=== PATIENT | male | born 1960 | race Caucasian/White ===

== ENCOUNTER 2016-11-05 12:15 | Inpatient (IN) | payer OTHER ==
[2016-11-05 12:50] VITALS: BMI 23.5
--- NOTE | 2016-11-05 13:24 | HP ---
CIWA Score - CIWA Score Nausea/Vomitin Muscle Tremors: 3 Anxiety: 3 Agitation: 3 Paroxysmal Sweats: 2 Orientation: 0-Oriented Tacttile Disturbances: 2-Mild Itch/Numbness/Burn Auditory Disturbances: 2-Mild Harshness/Frighten Visual Disturbances: 2-Mild Sensitivity Headache: 2-Mild CIWA-Ar Total Score: 22 Admission ROS BHS - HPI Chief Complaint: i need help help to stop drinking alcohol and cocaine Allergies/Adverse Reactions: Allergies Allergy/AdvReac Type Severity Reaction Status Date / Time lactose Allergy Verified 11/05/16 13:15 Penicillins Allergy Verified 11/05/16 13:15 apple AdvReac Hives Verified 11/05/16 13:15 orange AdvReac Hives Verified 11/05/16 13:15 pepper AdvReac Hives Verified 11/05/16 13:15 ALL FRUITS Allergy Intermediate Hives Uncoded 11/05/16 13:15 History of Present Illness: this 56 years old male with alcohol and cocaine dependence,withdrawal symptom, last detox [facility] 05/27/16 to 05/31/16 [facility] hiv since 1995 no medicatios for 3 months nicotine dependence weight loss htn anxiety and depression Exam Limitations: No Limitations - Ebola screening Have you traveled outside of the country in the last 21 days: No Have you had contact with anyone from an Ebola affected area: No Have you been sick,other than usual withdrawal symptoms: No Do you have a fever: No - Review of Systems Constitutional: Chills, Diaphoresis, Loss of Appetite, Malaise, Night Sweats, Changes in sleep, Weakness, Unintentional Wgt. Loss EENT: reports: Nose Congestion Respiratory: reports: No Symptoms reported Cardiac: reports: Palpitations GI: reports: Nausea, Vomiting, Indigestion, Abdominal cramping : reports: No Symptoms Reported Musculoskeletal: reports: Back Pain, Muscle Pain Integumentary: reports: Dryness Neuro: reports: Headache, Tremors Endocrine: reports: No Symptoms Reported Hematology: reports: Other (hiv) Psychiatric: reports: Anxious, Depressed Patient History - Patient Medical History Hx Anemia: No Hx Asthma: Yes Hx Chronic Obstructive Pulmonary Disease (COPD): Yes Hx Cancer: No Hx Cardiac Disorders: No Hx Congestive Heart Failure: No Hx Hypertension: Yes (no med) Hx Hypercholesterolemia: No Hx Pacemaker: No HX Cerebrovascular Accident: No Hx Seizures: No Hx Dementia: No Hx Diabetes: No Hx Gastrointestinal Disorders: Yes (gerd) Hx Liver Disease: No Hx Genitourinary Disorders: No Hx Sexually Transmitted Disorders: No Hx Renal Disease (ESRD): No Hx Thyroid Disease: No Hx Human Immunodeficiency Virus (HIV): Yes (1995) Hx Hepatitis C: No Hx Depression: Yes (anxiety) Hx Suicide Attempt: No Hx Bipolar Disorder: Yes Hx Schizophrenia: No Other Medical History: no suicidal,no homicidal - Patient Surgical History Past Surgical History: Yes Hx Neurologic Surgery: No Hx Cataract Extraction: No (cataract both eye, ) Hx Cardiac Surgery: No Hx Lung Surgery: No Hx Breast Surgery: No Hx Breast Biopsy: No Hx Abdominal Surgery: Yes (abscess 2012) Hx Appendectomy: No Hx Cholecystectomy: No Hx Genitourinary Surgery: No Hx Orthopedic Surgery: Yes (jaw fx 30 years ago) Anesthesia Reaction: No - PPD History Previous Implant?: Yes Documented Results: Negative w/proof Date: 05/29/16 PPD to be Administered?: No - Smoking Cessation Smoking history: Current every day smoker Have you smoked in the past 12 months: Yes Aproximately how many cigarettes per day: 2 Hx Chewing Tobacco Use: No Initiated information on smoking cessation: Yes 'Breaking Loose' booklet given: 11/05/16 - Substance & Tx. History Hx Alcohol Use: Yes Hx Substance Use: Yes Substance Use Type: Alcohol, Cocaine Hx Substance Use Treatment: Yes ([facility] 05/27/16 to 05/31/16) - Substances Abused Alcohol Route: Oral Frequency: Daily Amount used: 3 6PKS BEER Age of first use: 21 Date of Last Use: 11/05/16 Cocaine Route: Inhalation Frequency: 1-3 times last 30 days Amount used: 1 HIT Age of first use: 56 Date of Last Use: 11/04/16 Family Disease History - Family Disease History Family Disease History: Diabetes: Mother (hypertension), Heart Disease: Mother, CA: Father (lung/alcohol), Other: Father Admission Physical Exam BHS - Vital Signs Vital Signs: Vital Signs - 24 hr 11/05/16 12:43 Temperature 95.6 F L Pulse Rate 77 Respiratory 18 Rate Blood Pressure 146/105 - Physical General Appearance: Yes: Moderate Distress, Tremorous, Irritable, Sweating HEENTM: Yes: Nasal Congestion, Other (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) Respiratory: Yes: Lungs Clear Neck: Yes: Within Normal Limits Breast: Yes: Within Normal Limits Cardiology: Yes: Within Normal Limits, Regular Rhythm, Regular Rate, S1, S2 Abdominal: Yes: Within Normal Limits, Normal Bowel Sounds, Non Tender, Flat, Soft Genitourinary: Yes: Within Normal Limits Back: Yes: Muscle Spasm Musculoskeletal: Yes: Back pain Extremities: Yes: Tremors Neurological: Yes: chef manager II-XII NML intact, Fully Oriented, Alert, Motor Strength 5/5 Integumentary: Yes: Dry Lymphatic: Yes: Within Normal Limits - Diagnostic (1) Alcohol dependence with withdrawal Current Visit: No Status: Acute Qualifiers: Complication of substance-induced condition: uncomplicated Qualified Code(s): F10.230 - Alcohol dependence with withdrawal, uncomplicated (2) Nicotine dependence Current Visit: No Status: Acute Qualifiers: Nicotine product type: cigarettes Substance use status: uncomplicated Qualified Code(s): F17.210 - Nicotine dependence, cigarettes, uncomplicated (3) Asthma Current Visit: No Status: Chronic Qualifiers: Asthma severity: mild persistent Asthma complication type: with status asthmaticus Qualified Code(s): J45.32 - Mild persistent asthma with status asthmaticus (4) COPD (chronic obstructive pulmonary disease) Current Visit: No Status: Chronic Qualifiers: COPD type: emphysema Emphysema type: panlobular Qualified Code(s ): J43.1 - Panlobular emphysema (5) GERD (gastroesophageal reflux disease) Current Visit: No Status: Chronic Qualifiers: Esophagitis presence: without esophagitis Qualified Code(s): K21.9 - Gastro-esophageal reflux disease without esophagitis (6) HIV (human immunodeficiency virus infection) Current Visit: No Status: Chronic (7) Bipolar affect, depressed Current Visit: No Status: Suspected Qualifiers: Current episode severity: mild Qualified Code(s): F31.31 - Bipolar disorder, current episode depressed, mild (8) Blind left eye Current Visit: Yes Status: Acute (9) Deafness in left ear Current Visit: Yes Status: Acute (10) Vision loss night Current Visit: Yes Status: Acute (11) Vision loss of right eye Current Visit: Yes Status: Acute Cleared for Admission S - Detox or Rehab S Level of Care: Medically Managed Detox Regimen/Protocol: Librium S Breath Alcohol Content Breath Alcohol Content: 0.204 Urine Drug Screen - Results Drug Screen Negative: No Urine Drug Screen Results: HARISH-Cocaine
[2016-11-05] MEDS ORDERED: chlordiazePOXIDE HCL 25 MG CAPSULE PO PRN (13:50)
[2016-11-05] MEDS ORDERED: IBUPROFEN 400 MG TABLET (FP) PO PRN (13:50)
[2016-11-05] MEDS ORDERED: MAGNESIUM HYDROX 2400MG/30ML ORAL SUSPENSION 30 ML CUP PO PRN (13:50)
[2016-11-05] MEDS ORDERED: hydrOXYzine PAMOATE 50 MG CAPSULE (FP) PO PRN (13:50)
[2016-11-05] MEDS ORDERED: guaiFENesin/D-METHORPHAN HB 10 ML UNIT-DOSE CUPS PO PRN (13:50)
[2016-11-05] MEDS ORDERED: ACETAMINOPHEN 325 MG TABLET (FP) PO PRN (13:50)
[2016-11-05] MEDS ORDERED: MAGNESIUM CITRATE 300 ML BOTTLE PO PRN (13:50)
[2016-11-05] MEDS ORDERED: MAG HYDROX/AL HYDROX/SIMETH 30 ML UNIT-DOSE CUP PO PRN (13:50)
[2016-11-05] MEDS ORDERED: LOPERAMIDE HCL 2 MG CAPSULE PO PRN (13:50)
[2016-11-05] MEDS ORDERED: P-EPHED 60MG/TRIPROLIDI 2.5MG TABLET PO PRN (13:50)
[2016-11-05] MEDS ORDERED: MENTHOL/PHENOL 1 EACH UD MM PRN (13:50)
[2016-11-05] MEDS ORDERED: ALBUTEROL SO4 6.7 GM HFA INHALER IH PRN (13:54)
[2016-11-05] MEDS ORDERED: chlordiazePOXIDE HCL 25 MG CAPSULE PO ONE (14:00)
--- NOTE | 2016-11-05 17:26 | CONSULT ---
[facility] Psychiatric Consult - Data Date of interview: 11/05/16 Admission source: [facility] Identifying data: [facility] for this 56 y/o [place] male seeking detox treatment on for alcohol and cocaine dependence.Patient is single,a father of three,domiciled,unemployed and supported on SSI benefits. Substance Abuse History: - Smoking Cessation. Smoking history: Current every day smoker. Have you smoked in the past 12 months: Yes. Aproximately how many cigarettes per day: 2. Hx Chewing Tobacco Use: No. Initiated information on smoking cessation: Yes. 'Breaking Loose' booklet given: 11/05/16. - Substance & Tx. History. Hx Alcohol Use: Yes. Hx Substance Use: Yes. Substance Use Type : Alcohol, Cocaine. Hx Substance Use Treatment: Yes ([facility] 05/27/[facility] to 05/31/16) . - Substances Abused. Alcohol. Route: Oral. Frequency: Daily. Amount used: 3 6PKS BEER. Age of first use: 21. Date of Last Use: 11/05/16. Cocaine. Route: Inhalation. Frequency: 1-3 times last 30 days. Amount used: 1 HIT. Age of first use: 56. Date of Last Use: 11/04/16 Medical History: Significant for bronchial asthma,HIV infection (on ART meds) since 1995,cataracts (both eyes),GERD,hypertension and deafness (left ear). Psychiatric History: No change in personal history since previous encounter in May 2016.History as follows: previously treated at the [facility] many years ago.Diagnosed with Bipolar Disorder.Mr Ocampo indicates that he stopped seeing his psychiatrist at [facility] (three years ago) in [place], [place] and decided to stay off psychotropic medications.No reported history of suicide attempts.No interest in resuming OPD care.Patient maintains his decision to abstain for medications other than drugs necessary for detoxification purposes. Physical/Sexual Abuse/Trauma History: Patient denies. Additional Comment: Urine Drug Screen Results: HARISH-Cocaine.Noted. Mental Status Exam - Mental Status Exam Alert and Oriented to: Time, Place, Person Cognitive Function: Good Patient Appearance: Well Groomed Mood: Withdrawn, Anxious, Hopeful Affect: Mood Congruent Patient Behavior: Fatigued, Appropriate, Cooperative Speech Pattern: Clear, Appropriate Voice Loudness: Normal Thought Process: Goal Oriented Thought Disorder: Not Present Hallucinations: Denies Suicidal Ideation: Denies Homicidal Ideation: Denies Insight/Judgement: Poor Sleep: Fair Appetite: Good Muscle strength/Tone: Normal Gait/Station: Normal Psychiatric Findings - Problem List ([place] 1, 2,3) (1) Alcohol dependence with withdrawal Current Visit: Yes Status: Acute Qualifiers: Complication of substance-induced condition: uncomplicated Qualified Code(s): F10.230 - Alcohol dependence with withdrawal, uncomplicated (2) Nicotine dependence Current Visit: Yes Status: Acute Qualifiers: Nicotine product type: cigarettes Substance use status: uncomplicated Qualified Code(s): F17.210 - Nicotine dependence, cigarettes, uncomplicated (3) Cocaine abuse Current Visit: Yes Status: Acute (4) Substance induced mood disorder Current Visit: Yes Status: Suspected (5) Deafness in left ear Current Visit: Yes Status: Chronic (6) Vision loss of right eye Current Visit: Yes Status: Chronic (7) Asthma Current Visit: Yes Status: Chronic Qualifiers: Asthma severity: mild persistent Asthma complication type: with status asthmaticus Qualified Code(s): J45.32 - Mild persistent asthma with status asthmaticus (8) COPD (chronic obstructive pulmonary disease) Current Visit: Yes Status: Chronic Qualifiers: COPD type: emphysema Emphysema type: panlobular Qualified Code(s ): J43.1 - Panlobular emphysema (9) GERD (gastroesophageal reflux disease) Current Visit: Yes Status: Chronic Qualifiers: Esophagitis presence: without esophagitis Qualified Code(s): K21.9 - Gastro-esophageal reflux disease without esophagitis (10) HIV (human immunodeficiency virus infection) Current Visit: Yes Status: Chronic (11) Dermatitis Current Visit: No Status: Suspected - Initial Treatment Plan Initial Treatment Plan: Psychoeducation.Detoxification.Observation.
[2016-11-05] MEDS: chlordiazePOXIDE HCL 25 MG CAPSULE PO SCH ×2 (17:48→22:09)
[2016-11-05] MEDS: BUDESONIDE/FORMETEROL FUMARATE 80/4.5 mcg INHALER IH SCH (22:08)
[2016-11-05] MEDS: diphenhydrAMINE HCL 50 MG CAPSULE PO PRN (22:09)
[2016-11-05] MEDS: THIAMINE HCL 100 MG TABLET (FP) PO SCH (22:09)
[2016-11-06] MEDS: chlordiazePOXIDE HCL 25 MG CAPSULE PO SCH ×4 (05:13→22:23)
[2016-11-06 10:31] LABS: MCH 32.9 pg (25.7-33.7); MCHC 33.3 g/dl (32.0-35.9); MEAN CELL VOLUME 98.8 fl (80-96); MEAN PLT VOLUME 8.6 fl (7.5-11.1); PLATELET COUNT 230 K/MM3 (134-434); RDW 13.7 % (11.9-15.9); WHITE BLOOD COUNT 6.9 K/mm3 (4.0-10.0)
[2016-11-06] MEDS: HYDROCHLOROTHIAZIDE 25 MG TABLET (FP) PO SCH (10:42)
[2016-11-06] MEDS: BUDESONIDE/FORMETEROL FUMARATE 80/4.5 mcg INHALER IH SCH ×2 (10:43→22:24)
[2016-11-06] MEDS: PRENATAL VITAMINS W/ FOLIC ACID TABLET (FP) PO SCH (10:43)
[2016-11-06 10:52] LABS: URINE APPEARANCE CLEAR; URINE BILIRUBIN NEGATIVE (NEGATIVE); URINE BLOOD NEGATIVE (NEGATIVE); URINE COLOR YELLOW; URINE GLUCOSE (UA) NEGATIVE (NEGATIVE); URINE KETONE NEGATIVE (NEGATIVE); URINE LEUK ESTERASE NEGATIVE (NEGATIVE); URINE NITRITE NEGATIVE (NEGATIVE); URINE PROTEIN NEGATIVE (NEGATIVE); URINE UROBILINOGEN NEGATIVE E.U./dl (0.2-1.0)
[2016-11-06 11:10] LABS: ALBUMIN 4.5 g/dl (3.4-5.0); ALK PHOS 96 U/L (45-117); ANION GAP 10 (8-16); BILIRUBIN,TOTAL 0.5 mg/dL (0.2-1.0); CALCIUM 8.9 mg/dL (8.5-10.1); CO2 25 mmol/L (21-32); CREATININE 0.8 mg/dL (0.7-1.3); GLUCOSE,RANDOM 76 mg/dL (74-106); SGOT/AST 51 U/L (15-37); SGPT/ALT 87 U/L (12-78); TOT PROT 8.2 g/dl (6.4-8.2)
--- NOTE | 2016-11-06 12:56 | PN ---
S CIWA - CIWA Score Nausea/Vomitin Muscle Tremors: 3 Anxiety: 3 Agitation: 2 Paroxysmal Sweats: 1-Minimal Palms Moist Orientation: 0-Oriented Tacttile Disturbances: 1-Very Mild Itch/Numbness Auditory Disturbances: 1-Very Mild Visual Disturbances: 1-Very Mild Sensitivity Headache: 2-Mild CIWA-Ar Total Score: 17 BHS Progress Note (SOAP) Subjective: alert,irritable,anxious,tremor,interrupted sleep,pain in the body Objective: 11/06/16 12:54 Vital Signs Temperature 98.1 F 11/06/16 10:00 Pulse Rate 74 11/06/16 10:00 Respiratory Rate 18 11/06/16 10:00 Blood Pressure 141/92 11/06/16 10:00 O2 Sat by Pulse Oximetry (%) ekg nsr Laboratory Last Values WBC 6.9 K/mm3 (4.0-10.0) D 11/06/16 07:50 RBC 4.33 M/mm3 (4.00-5.60) 11/06/16 07:50 Hgb 14.2 GM/dL (11.7-16.9) 11/06/16 07:50 Hct 42.8 % (35.4-49) 11/06/16 07:50 MCV 98.8 fl (80-96) H 11/06/16 07:50 MCHC 33.3 g/dl (32.0-35.9) 11/06/16 07:50 RDW 13.7 % (11.9-15.9) 11/06/16 07:50 Plt Count 230 K/MM3 (134-434) 11/06/16 07:50 MPV 8.6 fl (7.5-11.1) 11/06/16 07:50 Sodium 139 mmol/L (136-145) 11/06/16 07:50 Potassium 4.0 mmol/L (3.5-5.1) 11/06/16 07:50 Chloride 104 mmol/L (98-107) 11/06/16 07:50 Carbon Dioxide 25 mmol/L (21-32) 11/06/16 07:50 Anion Gap 10 (8-16) 11/06/16 07:50 BUN 10 mg/dL (7-18) D 11/06/16 07:50 Creatinine 0.8 mg/dL (0.7-1.3) 11/06/16 07:50 Creat Clearance w eGFR > 60 (>60) 11/06/16 07:50 Random Glucose 76 mg/dL (74-106) 11/06/16 07:50 Calcium 8.9 mg/dL (8.5-10.1) 11/06/16 07:50 Total Bilirubin 0.5 mg/dL (0.2-1.0) D 11/06/16 07:50 AST 51 U/L (15-37) H D 11/06/16 07:50 ALT 87 U/L (12-78) H 11/06/16 07:50 Alkaline Phosphatase 96 U/L (45-117) 11/06/16 07:50 Total Protein 8.2 g/dl (6.4-8.2) D 11/06/16 07:50 Albumin 4.5 g/dl (3.4-5.0) D 11/06/16 07:50 Urine Color Yellow 11/06/16 09:14 Urine Appearance Clear 11/06/16 09:14 Urine pH 5.0 (5.0-8.0) 11/06/16 09:14 Ur Specific [place] 1.018 (1.001-1.035) 11/06/16 09:14 Urine Protein Negative (NEGATIVE) 11/06/16 09:14 Urine Glucose (UA) Negative (NEGATIVE) 11/06/16 09:14 Urine Ketones Negative (NEGATIVE) 11/06/16 09:14 Urine Blood Negative (NEGATIVE) 11/06/16 09:14 Urine Nitrite Negative (NEGATIVE) 11/06/16 09:14 Urine Bilirubin Negative (NEGATIVE) 11/06/16 09:14 Urine Urobilinogen Negative E.U./dl (0.2-1.0) 11/06/16 09:14 Ur Leukocyte Esterase Negative (NEGATIVE) 11/06/16 09:14 RPR Titer Nonreactive (NONREACTIVE) 11/06/16 07:50 Assessment: 11/06/16 12:55 withdrawal symptom.d/c tylenol,elevation of ast,alt Plan: continue detox
[2016-11-06] MEDS: diphenhydrAMINE HCL 50 MG CAPSULE PO PRN (22:05)
[2016-11-06] MEDS: THIAMINE HCL 100 MG TABLET (FP) PO SCH (22:24)
[2016-11-07] MEDS: chlordiazePOXIDE HCL 25 MG CAPSULE PO SCH ×2 (05:42→10:04)
[2016-11-07] MEDS: HYDROCHLOROTHIAZIDE 25 MG TABLET (FP) PO SCH (10:04)
[2016-11-07] MEDS: PRENATAL VITAMINS W/ FOLIC ACID TABLET (FP) PO SCH (10:04)
[2016-11-07] MEDS: BUDESONIDE/FORMETEROL FUMARATE 80/4.5 mcg INHALER IH SCH (10:29)
--- NOTE | 2016-11-07 13:42 | PN ---
S CIWA - CIWA Score Nausea/Vomitin-No Nausea/No Vomiting Muscle Tremors: 4-Moderate,w/Arms Extend Anxiety: 4-Mod. Anxious/Guarded Agitation: 4-Moderately Restless Paroxysmal Sweats: 3 Orientation: 0-Oriented Tacttile Disturbances: 0-None Auditory Disturbances: 0-None Visual Disturbances: 0-None Headache: 0-None Present CIWA-Ar Total Score: 15 BHS Progress Note (SOAP) Subjective: ANXIETY,TREMORS,SWEATING,INTERRUPTED SLEEP,RESTLESS Objective: 11/07/16 13:37 Vital Signs - 8 hr 11/07/16 11/07/16 06:00 10:00 Temperature 97.9 F 97.3 F L Pulse Rate 71 79 Respiratory 18 18 Rate Blood Pressure 158/62 109/62 Laboratory Tests 11/06/16 11/06/16 11/06/16 07:50 07:50 07:50 WBC 6.9 D RBC 4.33 Hgb 14.2 Hct 42.8 MCV 98.8 H MCHC 33.3 RDW 13.7 Plt Count 230 MPV 8.6 Sodium 139 Potassium 4.0 Chloride 104 Carbon Dioxide 25 Anion Gap 10 BUN 10 D Creatinine 0.8 Creat Clearance w eGFR > 60 Random Glucose 76 Calcium 8.9 Total Bilirubin 0.5 D AST 51 H D ALT 87 H Alkaline Phosphatase 96 Total Protein 8.2 D Albumin 4.5 D Urine Color Urine Appearance Urine pH Ur Specific [place] Urine Protein Urine Glucose (UA) Urine Ketones Urine Blood Urine Nitrite Urine Bilirubin Urine Urobilinogen Ur Leukocyte Esterase RPR Titer Nonreactive 11/06/16 09:14 WBC RBC Hgb Hct MCV MCHC RDW Plt Count MPV Sodium Potassium Chloride Carbon Dioxide Anion Gap BUN Creatinine Creat Clearance w eGFR Random Glucose Calcium Total Bilirubin AST ALT Alkaline Phosphatase Total Protein Albumin Urine Color Yellow Urine Appearance Clear Urine pH 5.0 Ur Specific [place] 1.018 Urine Protein Negative Urine Glucose (UA) Negative Urine Ketones Negative Urine Blood Negative Urine Nitrite Negative Urine Bilirubin Negative Urine Urobilinogen Negative Ur Leukocyte Esterase Negative RPR Titer LABS NOTED Assessment: 11/07/16 13:38 WITHDRAWAL SX. Plan: CONTINUE DETOX
[2016-11-07] MEDS ORDERED: chlordiazePOXIDE 5 MG CAPSULE PO SCH (17:00)
[2016-11-07 17:44] VITALS: BP 107/58; PULSE 72; TEMP 98.1
--- NOTE | 2016-11-07 18:24 | DS ---
[facility] Detox Discharge Summary Admission Date: 11/05/16 Discharge Date: 11/07/16 - History Present History: Alcohol Dependence, Cocaine Dependence Pertinent Past History: HIV HTN - Physical Exam Results Vital Signs: Vital Signs Temperature 98.1 F 11/07/16 17:43 Pulse Rate 72 11/07/16 17:43 Respiratory Rate 18 11/07/16 17:43 Blood Pressure 107/58 11/07/16 17:43 O2 Sat by Pulse Oximetry (%) Pertinent Admission Physical Exam Findings: WITHDRAWAL SX. Laboratory Tests 11/06/16 11/06/16 11/06/16 07:50 07:50 07:50 WBC 6.9 D RBC 4.33 Hgb 14.2 Hct 42.8 MCV 98.8 H MCHC 33.3 RDW 13.7 Plt Count 230 MPV 8.6 Sodium 139 Potassium 4.0 Chloride 104 Carbon Dioxide 25 Anion Gap 10 BUN 10 D Creatinine 0.8 Creat Clearance w eGFR > 60 Random Glucose 76 Calcium 8.9 Total Bilirubin 0.5 D AST 51 H D ALT 87 H Alkaline Phosphatase 96 Total Protein 8.2 D Albumin 4.5 D Urine Color Urine Appearance Urine pH Ur Specific [place] Urine Protein Urine Glucose (UA) Urine Ketones Urine Blood Urine Nitrite Urine Bilirubin Urine Urobilinogen Ur Leukocyte Esterase RPR Titer Nonreactive 11/06/16 09:14 WBC RBC Hgb Hct MCV MCHC RDW Plt Count MPV Sodium Potassium Chloride Carbon Dioxide Anion Gap BUN Creatinine Creat Clearance w eGFR Random Glucose Calcium Total Bilirubin AST ALT Alkaline Phosphatase Total Protein Albumin Urine Color Yellow Urine Appearance Clear Urine pH 5.0 Ur Specific [place] 1.018 Urine Protein Negative Urine Glucose (UA) Negative Urine Ketones Negative Urine Blood Negative Urine Nitrite Negative Urine Bilirubin Negative Urine Urobilinogen Negative Ur Leukocyte Esterase Negative RPR Titer LABS NOTED - Medication Discharge Medications: Ambulatory Orders Albuterol Sulfate Inhaler - [Ventolin Hfa Inhaler -] 2 inh PO Q4H PRN 05/27/16 Budesonide/Formeterol Fumarate [SYMBICORT 80/4.5mcg -] 2 inh PO BID 05/27/16 Ascorbic Acid [Vitamin C -] 500 mg PO DAILY 11/05/16 Folic Acid - 1 mg PO DAILY 11/05/16 Hydrochlorothiazide [Hctz -] 25 mg PO DAILY 11/05/16 Pyridoxine HCl (B-6) [Vitamin B6] 25 mg PO DAILY 11/05/16 Thiamine Mononitrate [Vitamin B-1] 100 mg PO DAILY 11/05/16 - Diagnosis (1) Alcohol dependence with withdrawal Current Visit: Yes Status: Acute Qualifiers: Complication of substance-induced condition: uncomplicated Qualified Code(s): F10.230 - Alcohol dependence with withdrawal, uncomplicated (2) Cocaine abuse Current Visit: Yes Status: Acute (3) Nicotine dependence Current Visit: Yes Status: Acute Qualifiers: Nicotine product type: cigarettes Substance use status: uncomplicated Qualified Code(s): F17.210 - Nicotine dependence, cigarettes, uncomplicated (4) Asthma Current Visit: Yes Status: Chronic Qualifiers: Asthma severity: mild persistent Asthma complication type: with status asthmaticus Qualified Code(s): J45.32 - Mild persistent asthma with status asthmaticus (5) COPD (chronic obstructive pulmonary disease) Current Visit: Yes Status: Chronic Qualifiers: COPD type: emphysema Emphysema type: panlobular Qualified Code(s ): J43.1 - Panlobular emphysema (6) Deafness in left ear Current Visit: Yes Status: Chronic (7) GERD (gastroesophageal reflux disease) Current Visit: Yes Status: Chronic Qualifiers: Esophagitis presence: without esophagitis Qualified Code(s): K21.9 - Gastro-esophageal reflux disease without esophagitis (8) HIV (human immunodeficiency virus infection) Current Visit: Yes Status: Chronic (9) Vision loss of right eye Current Visit: Yes Status: Chronic (10) Substance induced mood disorder Current Visit: Yes Status: Suspected - AMA Did Patient Leave Against Medical Advice: No
[2016-11-08] MEDS ORDERED: chlordiazePOXIDE HCL 10 MG CAPSULE PO SCH (17:00)
== END 2016-11-07 18:39 | disposition home or self-care (01) | DRG 774 ==
LOC: YASAS 12:15 → Y6N 13:49
PROVIDERS: ADMIT Internal Medicine Addiction Medicine; ATTEND Internal Medicine Addiction Medicine
PROC: HZ2ZZZZ Detoxification Services for Substance Abuse Treatment (ICD-10-PCS; principal; 2016-11-05)
DX: F10.230 Alcohol dependence with withdrawal, uncomplicated (principal); F14.10 Cocaine abuse, uncomplicated; F17.210 Nicotine dependence, cigarettes, uncomplicated; F19.24 Other psychoactive substance dependence with psychoactive substance-induced mood disorder; F41.8 Other specified anxiety disorders; I10 Essential (primary) hypertension; J45.32 Mild persistent asthma with status asthmaticus; J43.1 Panlobular emphysema; H91.92 Unspecified hearing loss, left ear; K21.9 Gastro-esophageal reflux disease without esophagitis; Z21 Asymptomatic human immunodeficiency virus [HIV] infection status; H54.41 Blindness, right eye, normal vision left eye; R74.0 Nonspecific elevation of levels of transaminase and lactic acid dehydrogenase [LDH]; H26.9 Unspecified cataract; Z87.898 Personal history of other specified conditions
CPT/HCPCS: 36415; 80053; 81003; 85027; 86593; 93005; 93010

== ENCOUNTER 2019-07-12 11:56 | Inpatient (IN) | payer OTHER ==
[2019-07-12 14:13] VITALS: BMI 21.6
--- NOTE | 2019-07-12 15:08 | HP ---
CIWA Score Nausea/Vomitin Muscle Tremors: 2 Anxiety: 4-Mod. Anxious/Guarded Agitation: 4-Moderately Restless Paroxysmal Sweats: 2 Orientation: 1-Uncertain about Date Tacttile Disturbances: 2-Mild Itch/Numbness/Burn Auditory Disturbances: 0-None Visual Disturbances: 2-Mild Sensitivity Headache: 0-None Present CIWA-Ar Total Score: 19 - Admission Criteria OAS Guidelines: Admission for Medically Managed Detox: Requires at least one of the followin. CIWA greater than 12 2. Seizures within the past 24 hours 3. Delirium tremens within the past 24 hours 4. Hallucinations within the past 24 hours 5. Acute intervention needed for co occurring medical disorder 6. Acute intervention needed for co occurring psychiatric disorder 7. Severe withdrawal that cannot be handled at a lower level of care (continued vomiting, continued diarrhea, abnormal vital signs) requiring intravenous medication and/or fluids 8. Admission ROS [facility] Chief Complaint: detox EtOH Allergies/Adverse Reactions: Allergies Allergy/AdvReac Type Severity Reaction Status Date / Time lactose Allergy Verified 07/12/19 13:50 Penicillins Allergy Verified 07/12/19 13:50 apple AdvReac Hives Verified 07/12/19 13:50 orange AdvReac Hives Verified 07/12/19 13:50 pepper (genus Capsicum) AdvReac Hives Verified 07/12/19 13:50 [pepper] ALL FRUITS Allergy Intermediate Hives Uncoded 11/05/16 13:15 History of Present Illness: 59M w/ pmh of HTN, bipolar, HIV(dx in 90's; low CD4, high viral load), OA, methadone(45mg, for ?EtOH problem) presenting to [facility] for EtOH detox. Also wants to stop methadone. Drinks 12beers for 2ys. Last drink was prior to the waiting room. Drinks first thing in the morning. Denies h/o blackouts, seizures. Never had CT H. Denies scleral icterus, hematemesis, hematachezia, ascites. Occasionally snorts heroin, last use was evening prior. Denies OD. Smoked K2 daily for 2ys, but stopped 2ys prior. Had crack cocaine addiction >20ys prior. Denies IVDU. Smokes 5cig daily. Substance free for 26ys until ~2017. Noncompliant with HIV medications due to drinking. Daily productive cough with white sputum for 6mo. Has had CXR, but nothing notable. PCP started PO abx. Lives in dorm-longterm. Has 3 sons that he does not keep contact with. Does not work, on disability. Exam Limitations: No Limitations - Ebola screening Have you traveled outside of the country in the last 21 days: No (N) Have you had contact with anyone from an Ebola affected area: No Do you have a fever: No - Review of Systems Constitutional: Night Sweats, Unintentional Wgt. Loss (~20lbs) EENT: denies: Blurred Vision, Double Vision Respiratory: reports: Productive cough Cardiac: denies: Chest Pain, Palpitations, Chest Tightness GI: denies: Constipated, Diarrhea, Nausea, Vomiting : denies: Dysuria, Urgency Musculoskeletal: reports: Joint Pain Neuro: denies: Numbness, Seizure, Dizziness Psychiatric: reports: Agitated, Anxious, Depressed Patient History - Patient Medical History Hx Anemia: No Hx Asthma: Yes Hx Chronic Obstructive Pulmonary Disease (COPD): Yes Hx Cancer: No Hx Cardiac Disorders: No Hx Congestive Heart Failure: No Hx Hypertension: Yes (no med) Hx Hypercholesterolemia: No Hx Pacemaker: No HX Cerebrovascular Accident: No Hx Seizures: No Hx Dementia: No Hx Diabetes: No Hx Gastrointestinal Disorders: Yes (gerd) Hx Liver Disease: No Hx Genitourinary Disorders: No Hx Sexually Transmitted Disorders: No Hx Renal Disease (ESRD): No Hx Thyroid Disease: No Hx Human Immunodeficiency Virus (HIV): Yes (1995) Hx Hepatitis C: No Hx Depression: Yes (anxiety) Hx Suicide Attempt: No Hx Bipolar Disorder: Yes Hx Schizophrenia: No - Patient Surgical History Past Surgical History: Yes Hx Neurologic Surgery: No Hx Cataract Extraction: No (cataract both eye, ) Hx Cardiac Surgery: No Hx Lung Surgery: No Hx Breast Surgery: No Hx Breast Biopsy: No Hx Abdominal Surgery: Yes (abscess 2012) Hx Appendectomy: No Hx Cholecystectomy: No Hx Genitourinary Surgery: No Hx Orthopedic Surgery: Yes (jaw fx 30 years ago) Anesthesia Reaction: No - PPD History Date: 05/29/16 Results: 0 MM - Smoking Cessation Smoking history: Current every day smoker Have you smoked in the past 12 months: Yes Aproximately how many cigarettes per day: 2 Hx Chewing Tobacco Use: No Initiated information on smoking cessation: No - Substance & Tx. History Hx Alcohol Use: Yes (12beers daily) Substance Use Type: Alcohol, Cocaine, Heroin, Marijuana, Opiates - Substances abused Alcohol Frequency: Daily Amount used: 24 cans 12 ounce/beer Age of first use: 25 Date of last use: 07/12/19 Family Disease History - Family Disease History Family Disease History: Diabetes: Mother (hypertension), Heart Disease: Mother, CA: Father (lung/alcohol), Other: Father Admission Physical Exam S - Vital Signs Vital Signs: Vital Signs - 24 hr 07/12/19 14:01 Temperature 97.4 F L Pulse Rate 77 Respiratory 18 Rate Blood Pressure 123/78 - Physical General Appearance: Yes: Cachetic, Thin, Irritable, Anxious. No: Tremorous, Sweating HEENTM: Yes: Normocephalic, HANS. No: Pharynx Normal, Pale Conjunctivae R, Pale Conjunctivae L, Scleral Ictenus R, Scleral Ictenus L Respiratory: Yes: Chest Non-Tender, No Respiratory Distress, No Accessory Muscle Use, Rhonchi (b/l in bases). No: Plerual Rub Cardiology: Yes: Regular Rate, S1, S2, Bradycardia, Tachycardia Abdominal: Yes: Soft, Surgical Scar (LLQ ~1-2cm). No: Distended, Guarding, Rebound, Tenderness Musculoskeletal: Yes: full range of Motion, Gait Steady Extremities: Yes: Normal Range of Motion. No: Tremors, Coldness, Calf Tenderness Neurological: Yes: Alert Integumentary: Yes: Dry, Warm Breathalyzer - Breathalyzer Breathalyzer: 0.133 Inpatient Rehab Admission - Rehab Decision to Admit Inpatient rehab admission?: No
[2019-07-12] MEDS ORDERED: MAG HYDROX/AL HYDROX/SIMETH 30 ML UNIT-DOSE CUP PO PRN (15:48)
[2019-07-12] MEDS ORDERED: ACETAMINOPHEN 325 MG TABLET (FP) PO PRN ×2 (15:48)
[2019-07-12] MEDS ORDERED: IBUPROFEN 400 MG TABLET (FP) PO PRN (15:48)
[2019-07-12] MEDS ORDERED: MAGNESIUM CITRATE 300 ML BOTTLE PO PRN (15:48)
[2019-07-12] MEDS ORDERED: chlordiazePOXIDE HCL 10 MG CAPSULE PO PRN (15:48)
[2019-07-12] MEDS ORDERED: MAGNESIUM HYDROX 2400MG/30ML ORAL SUSPENSION 30 ML CUP PO PRN (15:48)
[2019-07-12] MEDS ORDERED: hydrOXYzine PAMOATE 25 MG CAPSULE (FP) PO PRN (15:48)
[2019-07-12] MEDS ORDERED: METHOCARBAMOL 500 MG TABLET PO PRN (15:48)
[2019-07-12] MEDS ORDERED: MENTHOL/PHENOL 1 EACH UD MM PRN (15:48)
[2019-07-12] MEDS ORDERED: BISMUTH SUBSALICYLATE 524 MG/30 ML UD PO PRN (15:48)
[2019-07-12] MEDS ORDERED: ALBUTEROL SO4 8 GM HFA INHALER IH PRN (15:52)
--- NOTE | 2019-07-12 16:16 | PN ---
Teaching Attending Note Name of Resident: Cheo Osman ATTENDING PHYSICIAN STATEMENT I saw and evaluated the patient. I reviewed the resident's note and discussed the case with the resident. I agree with the resident's findings and plan as documented. SUBJECTIVE: 59 y.o. male requesting detox from etoh use , reports daily use , tremors if not drinking . on MMTP x 1 year , did not go today , reports heroin use 1 bag yesterday . PMHX : HAART OBJECTIVE: thin, anxious, agitated CIWA 19 Vital Signs - 24 hr 07/12/19 14:01 Temperature 97.4 F L Pulse Rate 77 Respiratory 18 Rate Blood Pressure 123/78 ASSESSMENT AND PLAN: etoh dependence -detox opioid dependence on agonist therapy
[2019-07-12] MEDS ORDERED: chlordiazePOXIDE HCL 25 MG CAPSULE PO ONE (17:15)
[2019-07-12] MEDS: chlordiazePOXIDE HCL 25 MG CAPSULE PO SCH (22:25)
[2019-07-12] MEDS: THIAMINE HCL 100 MG TABLET (FP) PO SCH (22:25)
[2019-07-12] MEDS: BUDESONIDE/FORMETEROL FUMARATE 80/4.5 mcg INHALER IH SCH (22:25)
[2019-07-12] MEDS: MELATONIN 5 MG TABLETS PO PRN (22:26)
[2019-07-13] MEDS: chlordiazePOXIDE HCL 25 MG CAPSULE PO SCH ×3 (05:50→21:49)
[2019-07-13] MEDS ORDERED: METHADONE HCL 10 MG TABLET PO SCH ×2 (06:00→09:30)
[2019-07-13] MEDS ORDERED: METHADONE HCL 5 MG TABLET ONE (09:44)
[2019-07-13] MEDS ORDERED: METHADONE HCL 40 MG DISPERSABLE TABLET ONE (09:44)
[2019-07-13] MEDS ORDERED: amLODIPine BESYLATE 5 MG TABLET (FP) PO SCH (10:00)
[2019-07-13] MEDS ORDERED: PATIENT'S OWN MEDICATION (NON-FORMULARY) (Bictegrav/Emtricit/Tenofov Ala 1 TAB) PO SCH (10:00)
[2019-07-13] MEDS: METHADONE 40 MG, METHADONE 5 MG PO SCH (10:34)
[2019-07-13] MEDS: PRENATAL VITAMINS W/ FOLIC ACID TABLET (FP) PO SCH (10:35)
[2019-07-13] MEDS: NICOTINE 14 MG/24 HOURS TOPICAL PATCH TD SCH (10:35)
[2019-07-13] MEDS: BUDESONIDE/FORMETEROL FUMARATE 80/4.5 mcg INHALER IH SCH ×2 (10:36→21:49)
[2019-07-13 12:12] LABS: HEMATOCRIT 38.4 % (35.4-49); HEMOGLOBIN 12.9 GM/dL (11.7-16.9); MCHC 33.5 g/dl (32.0-35.9); MEAN CELL VOLUME 95.5 fl (80-96); MEAN PLT VOLUME 7.8 fl (7.5-11.1); PLATELET COUNT 259 K/MM3 (134-434); RBC 4.01 M/mm3 (4.00-5.60); RDW 12.9 % (11.9-15.9); WHITE BLOOD COUNT 5.2 K/mm3 (4.0-10.0)
[2019-07-13 12:21] LABS: ALBUMIN 3.4 g/dl (3.4-5.0); BILIRUBIN,TOTAL 0.6 mg/dL (0.2-1); BLOOD UREA NITROGEN 8.1 mg/dL (7-18); CALCIUM 9.1 mg/dL (8.5-10.1); CREATININE 0.7 mg/dL (0.55-1.3); POTASSIUM 4.1 mmol/L (3.5-5.1); TOT PROT 7.4 g/dl (6.4-8.2)
--- NOTE | 2019-07-13 13:36 | CONSULT ---
[facility] Psychiatric Consult - Data Date of interview: 07/13/19 Admission source: [facility] Identifying data: Readmission to [facility] for this 59 y/o [place] male self-referred for detoxification (alcohol, cannabis/K2, cocaine, opioid). Examined at [address] [place] [address]. Patient is single, a father of three, domiciled, unemployed and supported on SSI benefits. Substance Abuse History: Discussed in this session. [facility] report appreciated. Smoking history: Current every day smoker. Have you smoked in the past 12 months: Yes. Aproximately how many cigarettes per day: 2. Hx Chewing Tobacco Use: No. Initiated information on smoking cessation: No. - Substance & Tx. History. Hx Alcohol Use: Yes (12beers daily). Substance Use Type: Alcohol, Cocaine, Heroin, Marijuana, Opiates. - Substances abused. Alcohol. Frequency: Daily. Amount used: 24 cans 12 ounce/beer. Age of first use: 25. Date of last use: 07/12/19 Medical History: Medical profile is remarkable for bronchial asthma, HIV infection (on ART meds) since 1995, cataracts (both eyes), GERD, hypertension and deafness (left ear). Psychiatric History: No reported psychiatric hospitalizations for several years. Patient admits to past treatment at the [facility] years ago. Was reportedly diagnosed with Bipolar Disorder. Mr Ocampo has dropped out of psychiatric OPD care for more than five years. Has kept himself off psychotropic medications. Denies history of suicide attempts. Patient maintains his decision to abstain for medications other than drugs necessary for detoxification purposes. Currently on methadone maintenance (45 mg/day). Physical/Sexual Abuse/Trauma History: Patient denies. Additional Comment: Toxicology is not available for review. Mental Status Exam - Mental Status Exam Alert and Oriented to: Time, Place, Person Cognitive Function: Good Patient Appearance: Well Groomed Mood: Hopeful, Euthymic Affect: Appropriate, Normal Range Patient Behavior: Fatigued, Appropriate, Cooperative Speech Pattern: Clear Voice Loudness: Normal Thought Process: Intact, Goal Oriented Thought Disorder: Not Present Hallucinations: Denies Suicidal Ideation: Denies Homicidal Ideation: Denies Insight/Judgement: Poor Sleep: Well Appetite: Good Muscle strength/Tone: Normal Gait/Station: Normal Psychiatric Findings - Problem List ([place] 1, 2,3) (1) Alcohol dependence with withdrawal Current Visit: Yes Status: Acute Qualifiers: Complication of substance-induced condition: uncomplicated Qualified Code(s ): F10.230 - Alcohol dependence with withdrawal, uncomplicated (2) Cocaine abuse Current Visit: Yes Status: Chronic (3) Nicotine dependence Current Visit: Yes Status: Chronic Qualifiers: Nicotine product type: cigarettes Substance use status: uncomplicated Qualified Code(s): F17.210 - Nicotine dependence, cigarettes, uncomplicated (4) Substance induced mood disorder Current Visit: Yes Status: Suspected - Initial Treatment Plan Initial Treatment Plan: Psychoeducation. Sleep hygiene. Detoxification. AA/NA meetings. Observation.
[2019-07-13] MEDS ORDERED: ALBUTEROL SO4 2.5/IPRATROPIUM 0.5 INH SOL 3 ML VIAL.NEB. NEB PRN (13:47)
--- NOTE | 2019-07-13 13:54 | PN ---
S CIWA - CIWA Score Nausea/Vomitin-No Nausea/No Vomiting Muscle Tremors: 3 Anxiety: 3 Agitation: 2 Paroxysmal Sweats: 3 Orientation: 0-Oriented Tacttile Disturbances: 2-Mild Itch/Numbness/Burn Auditory Disturbances: 0-None Visual Disturbances: 0-None Headache: 0-None Present CIWA-Ar Total Score: 13 BHS Progress Note (SOAP) Subjective: Sweating, Chills, Anxious, Tremors. Objective: PATIENT A & O X 3, OBSERVED AMBULATING ON UNIT UNASSISTED. IN NO ACUTE DISTRESS. 07/13/19 13:52 Vital Signs Temperature 97.7 F 07/13/19 13:38 Pulse Rate 68 07/13/19 13:38 Respiratory Rate 18 07/13/19 13:38 Blood Pressure 151/99 07/13/19 13:38 O2 Sat by Pulse Oximetry (%) Laboratory Tests 07/13/19 07/13/19 07/13/19 08:35 08:35 08:35 WBC 5.2 RBC 4.01 Hgb 12.9 Hct 38.4 MCV 95.5 MCH 32.0 MCHC 33.5 RDW 12.9 Plt Count 259 MPV 7.8 Sodium 144 Potassium 4.1 Chloride 105 Carbon Dioxide 26 Anion Gap 12 BUN 8.1 Creatinine 0.7 Est GFR (CKD-EPI)AfAm 118.88 Est GFR (CKD-EPI)NonAf 102.57 Random Glucose 162 H Calcium 9.1 Total Bilirubin 0.6 AST 29 ALT 30 Alkaline Phosphatase 85 Total Protein 7.4 Albumin 3.4 RPR Titer Nonreactive LABS NOTED. RESULTS OF DETOX ADMISSION QFT /TB TEST PENDING. 07/13/19 13:53 Assessment: 07/13/19 13:53 WITHDRAWAL SYMPTOMS. HYPERTENSION. HYPERGLYCEMIA. Plan: CONTINUE DETOX. INCREASE DAILY PO WATER INTAKE. INCREASE DAILY DOSE OF AMLODIPINE TO 10 MG PO DAILY FOR PERSISTENTLY ELEVATED BLOOD PRESSURE DESPITE PREVIOUS TREATMENT. FASTING GLUCOSE LEVEL TO BE DRAWN TOMORROW AM FOR ELEVATED RANDOM GLUCOSE LEVEL NOTED NO DETOX ADMISSION LABORATORY ASSESSMENT.
[2019-07-13] MEDS ORDERED: amLODIPine BESYLATE 5 MG TABLET (FP) PO ONE (14:15)
[2019-07-13] MEDS: guaiFENesin 600 MG TABLET.ER (FP) PO SCH (21:49)
[2019-07-13] MEDS: MELATONIN 5 MG TABLETS PO PRN (21:49)
[2019-07-13] MEDS: THIAMINE HCL 100 MG TABLET (FP) PO SCH (21:49)
[2019-07-14] MEDS ORDERED: METHADONE HCL 40 MG DISPERSABLE TABLET ONE (05:28)
[2019-07-14] MEDS ORDERED: METHADONE HCL 5 MG TABLET ONE (05:28)
[2019-07-14] MEDS: METHADONE 40 MG, METHADONE 5 MG PO SCH (06:02)
[2019-07-14] MEDS: chlordiazePOXIDE 5 MG CAPSULE PO SCH ×3 (06:03→22:32)
[2019-07-14] MEDS: guaiFENesin 600 MG TABLET.ER (FP) PO SCH ×2 (10:14→22:32)
[2019-07-14] MEDS: amLODIPine BESYLATE 10 MG TABLET (FP) PO SCH (10:15)
[2019-07-14] MEDS: PRENATAL VITAMINS W/ FOLIC ACID TABLET (FP) PO SCH (10:15)
[2019-07-14] MEDS: NICOTINE 14 MG/24 HOURS TOPICAL PATCH TD SCH (10:15)
[2019-07-14] MEDS: BUDESONIDE/FORMETEROL FUMARATE 80/4.5 mcg INHALER IH SCH ×2 (10:16→22:32)
--- NOTE | 2019-07-14 15:17 | PN ---
S CIWA - CIWA Score Nausea/Vomitin-No Nausea/No Vomiting Muscle Tremors: 3 Anxiety: 3 Agitation: 1-Slight > Activity Paroxysmal Sweats: 3 Orientation: 0-Oriented Tacttile Disturbances: 2-Mild Itch/Numbness/Burn Auditory Disturbances: 0-None Visual Disturbances: 0-None Headache: 0-None Present CIWA-Ar Total Score: 12 BHS Progress Note (SOAP) Subjective: Sweating, Chills, Anxious, Tremors. Objective: PATIENT A & O X 3, OBSERVED AMBULATING ON DETOX UNIT UNASSISTED. IN NO ACUTE DISTRESS. 07/14/19 15:12 Vital Signs Temperature 98.0 F 07/14/19 13:32 Pulse Rate 92 H 07/14/19 13:32 Respiratory Rate 20 07/14/19 13:32 Blood Pressure 129/86 07/14/19 13:32 O2 Sat by Pulse Oximetry (%) Laboratory Tests 07/13/19 07/13/19 07/13/19 08:35 08:35 08:35 WBC 5.2 RBC 4.01 Hgb 12.9 Hct 38.4 MCV 95.5 MCH 32.0 MCHC 33.5 RDW 12.9 Plt Count 259 MPV 7.8 Sodium 144 Potassium 4.1 Chloride 105 Carbon Dioxide 26 Anion Gap 12 BUN 8.1 Creatinine 0.7 Est GFR (CKD-EPI)AfAm 118.88 Est GFR (CKD-EPI)NonAf 102.57 Random Glucose 162 H Calcium 9.1 Total Bilirubin 0.6 AST 29 ALT 30 Alkaline Phosphatase 85 Total Protein 7.4 Albumin 3.4 RPR Titer Nonreactive LABS NOTED. RESULT OF DETOX ADMISSION CXR (FOR HISTORY OF POSITIVE PPD) NOTED. NO ACUTE CHEST PATHOLOGY NOTED ON REPORT. RESULTS OF DETOX ADMISSION QFT /TB TEST PENDING. 07/14/19 15:13 Assessment: 07/14/19 15:13 WITHDRAWAL SYMPTOMS. HYPERGLYCEMIA. Plan: CONTINUE DETOX.
[2019-07-14] MEDS: MELATONIN 5 MG TABLETS PO PRN (22:32)
[2019-07-14] MEDS: THIAMINE HCL 100 MG TABLET (FP) PO SCH (22:32)
[2019-07-15] MEDS ORDERED: chlordiazePOXIDE HCL 10 MG CAPSULE PO PRN
[2019-07-15] MEDS ORDERED: METHADONE HCL 40 MG DISPERSABLE TABLET ONE (04:01)
[2019-07-15] MEDS ORDERED: METHADONE HCL 5 MG TABLET ONE (04:02)
[2019-07-15] MEDS: chlordiazePOXIDE HCL 10 MG CAPSULE PO SCH ×3 (05:58→23:03)
[2019-07-15] MEDS: METHADONE 40 MG, METHADONE 5 MG PO SCH (05:59)
[2019-07-15] MEDS: guaiFENesin 600 MG TABLET.ER (FP) PO SCH ×2 (10:17→23:02)
[2019-07-15] MEDS: amLODIPine BESYLATE 10 MG TABLET (FP) PO SCH (10:17)
[2019-07-15] MEDS: BUDESONIDE/FORMETEROL FUMARATE 80/4.5 mcg INHALER IH SCH ×2 (10:17→23:03)
[2019-07-15] MEDS: PRENATAL VITAMINS W/ FOLIC ACID TABLET (FP) PO SCH (10:17)
[2019-07-15] MEDS: NICOTINE 14 MG/24 HOURS TOPICAL PATCH TD SCH (12:11)
--- NOTE | 2019-07-15 14:37 | PN ---
[facility] CIWA - CIWA Score Nausea/Vomitin-No Nausea/No Vomiting Muscle Tremors: 2 Anxiety: 2 Agitation: 2 Paroxysmal Sweats: No Perspiration Orientation: 0-Oriented Tacttile Disturbances: 1-Very Mild Itch/Numbness Auditory Disturbances: 0-None Visual Disturbances: 0-None Headache: 0-None Present CIWA-Ar Total Score: 7 S Progress Note (SOAP) Subjective: 59 years old male 1st patient [facility] admission since 2017 was admitted on 07/12/19 for alcohol withdrawal sx management doing well with librium detox regimen seen by psychiatrist no pharmacotherapy needed Objective: 07/15/19 14:39 Vital Signs Temperature 97.5 F L 07/15/19 09:57 Pulse Rate 92 H 07/15/19 09:57 Respiratory Rate 18 07/15/19 09:57 Blood Pressure 113/78 07/15/19 09:57 O2 Sat by Pulse Oximetry (%) Laboratory Last Values WBC 5.2 K/mm3 (4.0-10.0) 07/13/19 08:35 RBC 4.01 M/mm3 (4.00-5.60) 07/13/19 08:35 Hgb 12.9 GM/dL (11.7-16.9) 07/13/19 08:35 Hct 38.4 % (35.4-49) 07/13/19 08:35 MCV 95.5 fl (80-96) 07/13/19 08:35 MCH 32.0 pg (25.7-33.7) 07/13/19 08:35 MCHC 33.5 g/dl (32.0-35.9) 07/13/19 08:35 RDW 12.9 % (11.9-15.9) 07/13/19 08:35 Plt Count 259 K/MM3 (134-434) 07/13/19 08:35 MPV 7.8 fl (7.5-11.1) 07/13/19 08:35 Sodium 144 mmol/L (136-145) 07/13/19 08:35 Potassium 4.1 mmol/L (3.5-5.1) 07/13/19 08:35 Chloride 105 mmol/L (98-107) 07/13/19 08:35 Carbon Dioxide 26 mmol/L (21-32) 07/13/19 08:35 Anion Gap 12 MMOL/L (8-16) 07/13/19 08:35 BUN 8.1 mg/dL (7-18) 07/13/19 08:35 Creatinine 0.7 mg/dL (0.55-1.3) 07/13/19 08:35 Est GFR (CKD-EPI)AfAm 118.88 07/13/19 08:35 Est GFR (CKD-EPI)NonAf 102.57 07/13/19 08:35 POC Glucometer 82 UNITS (80-120) 07/15/19 06:02 Random Glucose 162 mg/dL (74-106) H 07/13/19 08:35 Calcium 9.1 mg/dL (8.5-10.1) 07/13/19 08:35 Total Bilirubin 0.6 mg/dL (0.2-1) 07/13/19 08:35 AST 29 U/L (15-37) 07/13/19 08:35 ALT 30 U/L (13-61) 07/13/19 08:35 Alkaline Phosphatase 85 U/L (45-117) 07/13/19 08:35 Total Protein 7.4 g/dl (6.4-8.2) 07/13/19 08:35 Albumin 3.4 g/dl (3.4-5.0) 07/13/19 08:35 RPR Titer Nonreactive (NONREACTIVE) 07/13/19 08:35 TB (QFT) Incubation (.) 07/13/19 08:30 TB Test (QFT) Nil 0.06 IU/mL (.) 07/13/19 08:30 TB Test (QFT) Mitogen 4.02 IU/mL (.) 07/13/19 08:30 TB Test (QFT) Antigen 0.05 IU/mL (.) 07/13/19 08:30 TB Test (QFT) Negative (Negative) 07/13/19 08:30 TB Positive Criteria (.) 07/13/19 08:30 lab noted Assessment: 07/15/19 14:40 alcohol withdrawal sx Plan: continue libirum detox regimen
[2019-07-15] MEDS: THIAMINE HCL 100 MG TABLET (FP) PO SCH (23:02)
[2019-07-16] MEDS ORDERED: METHADONE HCL 40 MG DISPERSABLE TABLET ONE (04:59)
[2019-07-16] MEDS ORDERED: METHADONE HCL 5 MG TABLET ONE (04:59)
[2019-07-16] MEDS ORDERED: chlordiazePOXIDE HCL 10 MG CAPSULE PO ONE (05:00)
[2019-07-16] MEDS: METHADONE 40 MG, METHADONE 5 MG PO SCH (05:45)
[2019-07-16 06:44] VITALS: BP 120/82; PULSE 85; TEMP 97.9
--- NOTE | 2019-07-16 10:45 | DS ---
[facility] Detox Discharge Summary Admission Date: 07/12/19 Discharge Date: 07/16/19 - History Present History: Alcohol Dependence Additional Comments: 59 years old male admitted on 07/12/19 for alcohol withdrawal sx management did well with libirum detox regimen no complication through out the detox stay alert oriented x 3 Pertinent Past History: patient agrees to return to infectious disease specialist for hiv follow up - Physical Exam Results Vital Signs: Vital Signs Temperature 97.9 F 07/16/19 06:00 Pulse Rate 85 07/16/19 06:00 Respiratory Rate 16 07/16/19 06:00 Blood Pressure 120/82 07/16/19 06:00 O2 Sat by Pulse Oximetry (%) Pertinent Admission Physical Exam Findings: alcohol withdrawal sx Vital Signs Temperature 97.9 F 07/16/19 06:00 Pulse Rate 85 07/16/19 06:00 Respiratory Rate 16 07/16/19 06:00 Blood Pressure 120/82 07/16/19 06:00 O2 Sat by Pulse Oximetry (%) Laboratory Last Values WBC 5.2 K/mm3 (4.0-10.0) 07/13/19 08:35 RBC 4.01 M/mm3 (4.00-5.60) 07/13/19 08:35 Hgb 12.9 GM/dL (11.7-16.9) 07/13/19 08:35 Hct 38.4 % (35.4-49) 07/13/19 08:35 MCV 95.5 fl (80-96) 07/13/19 08:35 MCH 32.0 pg (25.7-33.7) 07/13/19 08:35 MCHC 33.5 g/dl (32.0-35.9) 07/13/19 08:35 RDW 12.9 % (11.9-15.9) 07/13/19 08:35 Plt Count 259 K/MM3 (134-434) 07/13/19 08:35 MPV 7.8 fl (7.5-11.1) 07/13/19 08:35 Sodium 144 mmol/L (136-145) 07/13/19 08:35 Potassium 4.1 mmol/L (3.5-5.1) 07/13/19 08:35 Chloride 105 mmol/L (98-107) 07/13/19 08:35 Carbon Dioxide 26 mmol/L (21-32) 07/13/19 08:35 Anion Gap 12 MMOL/L (8-16) 07/13/19 08:35 BUN 8.1 mg/dL (7-18) 07/13/19 08:35 Creatinine 0.7 mg/dL (0.55-1.3) 07/13/19 08:35 Est GFR (CKD-EPI)AfAm 118.88 07/13/19 08:35 Est GFR (CKD-EPI)NonAf 102.57 07/13/19 08:35 POC Glucometer 82 UNITS (80-120) 07/15/19 06:02 Random Glucose 162 mg/dL (74-106) H 07/13/19 08:35 Calcium 9.1 mg/dL (8.5-10.1) 07/13/19 08:35 Total Bilirubin 0.6 mg/dL (0.2-1) 07/13/19 08:35 AST 29 U/L (15-37) 07/13/19 08:35 ALT 30 U/L (13-61) 07/13/19 08:35 Alkaline Phosphatase 85 U/L (45-117) 07/13/19 08:35 Total Protein 7.4 g/dl (6.4-8.2) 07/13/19 08:35 Albumin 3.4 g/dl (3.4-5.0) 07/13/19 08:35 RPR Titer Nonreactive (NONREACTIVE) 07/13/19 08:35 TB (QFT) Incubation (.) 07/13/19 08:30 TB Test (QFT) Nil 0.06 IU/mL (.) 07/13/19 08:30 TB Test (QFT) Mitogen 4.02 IU/mL (.) 07/13/19 08:30 TB Test (QFT) Antigen 0.05 IU/mL (.) 07/13/19 08:30 TB Test (QFT) Negative (Negative) 07/13/19 08:30 TB Positive Criteria (.) 07/13/19 08:30 lab noted bp controlled within acceptable range patient agrees to bring in lab report to methadone program for follow up - Treatment Hospital Course: Detox Protocol Followed, Detoxed Safely, Responded well, Discharged Condition Good, Rehab Referral Accepted Patient has Accepted a Re[facility] Referral to: [facility] - Medication Discharge Medications: Ambulatory Orders Ascorbic Acid [Vitamin C -] 500 mg PO DAILY 11/05/16 Folic Acid - 1 mg PO DAILY 11/05/16 Pyridoxine HCl (B-6) [Vitamin B6 -] 25 mg PO DAILY 11/05/16 Thiamine Mononitrate [Vitamin B-1] 100 mg PO DAILY 11/05/16 Amlodipine Besylate [Norvasc -] 5 mg PO DAILY 07/12/19 Bictegrav/Emtricit/Tenofov Ala [Biktarvy 50-200-25 mg Tablet] 1 tab PO DAILY 03/25 Methadone [Dolophine -] 45 mg PO DAILY 07/12/19 Albuterol Sulfate Inhaler - [Ventolin HFA Inhaler -] 2 inh PO Q4H PRN #1 inhaler 07/15/19 Amlodipine Besylate [Norvasc -] 10 mg PO DAILY #30 tablet 07/15/19 Budesonide/Formeterol Fumarate [SYMBICORT 80/4.5mcg -] 2 inh PO BID #1 inhaler 07/15/19 Hydrochlorothiazide [Hctz -] 25 mg PO DAILY #30 tablet 07/15/19 - Diagnosis (1) Alcohol dependence with withdrawal Status: Acute Qualifiers: Complication of substance-induced condition: uncomplicated Qualified Code(s ): F10.230 - Alcohol dependence with withdrawal, uncomplicated (2) Hypertension Status: Chronic Qualifiers: Hypertension type: unspecified Qualified Code(s): I10 - Essential (primary ) hypertension (3) Asthma Status: Chronic Qualifiers: Asthma severity: mild Asthma persistence: intermittent Asthma complication type: with status asthmaticus Qualified Code(s): J45.22 - Mild intermittent asthma with status asthmaticus (4) COPD (chronic obstructive pulmonary disease) Status: Chronic Qualifiers: COPD type: emphysema Emphysema type: panlobular Qualified Code(s): J43.1 - Panlobular emphysema (5) GERD (gastroesophageal reflux disease) Status: Chronic Qualifiers: Esophagitis presence: without esophagitis Qualified Code(s): K21.9 - Gastro -esophageal reflux disease without esophagitis (6) HIV (human immunodeficiency virus infection) Status: Chronic Qualifiers: HIV symptom status: asymptomatic Qualified Code(s): Z21 - Asymptomatic human immunodeficiency virus [HIV] infection status (7) Nicotine dependence Status: Acute Qualifiers: Nicotine product type: cigarettes Substance use status: in withdrawal Qualified Code(s): F17.213 - Nicotine dependence, cigarettes, with withdrawal (8) Substance induced mood disorder Status: Suspected - AMA Did Patient Leave Against Medical Advice: No CIWA Score - CIWA Score Nausea/Vomitin-No Nausea/No Vomiting Muscle Tremors: 1-None Visible, but [place] Anxiety: 1-Mildly Anxious Agitation: 1-Slight > Activity Paroxysmal Sweats: No Perspiration Orientation: 0-Oriented Tacttile Disturbances: 0-None Auditory Disturbances: 0-None Visual Disturbances: 0-None Headache: 0-None Present CIWA-Ar Total Score: 3
== END 2019-07-16 09:36 | disposition home or self-care (01) | DRG 774 ==
LOC: YASAS 11:56 → Y3N 16:45
PROVIDERS: ADMIT Surgery; ATTEND Surgery
PROC: HZ2ZZZZ Detoxification Services for Substance Abuse Treatment (ICD-10-PCS; principal; 2019-07-12)
DX: F10.230 Alcohol dependence with withdrawal, uncomplicated (principal); F14.10 Cocaine abuse, uncomplicated; F17.213 Nicotine dependence, cigarettes, with withdrawal; F19.24 Other psychoactive substance dependence with psychoactive substance-induced mood disorder; I10 Essential (primary) hypertension; J45.22 Mild intermittent asthma with status asthmaticus; J43.1 Panlobular emphysema; K21.9 Gastro-esophageal reflux disease without esophagitis; Z21 Asymptomatic human immunodeficiency virus [HIV] infection status; R73.9 Hyperglycemia, unspecified; H40.9 Unspecified glaucoma; H91.92 Unspecified hearing loss, left ear; Z88.0 Allergy status to penicillin; Z91.048 Other nonmedicinal substance allergy status
CPT/HCPCS: 36415; 71046-TC-FY; 80053; 82962; 85027; 86480; 86593